=== PATIENT | female | born 1955 | race Caucasian/White ===

== ENCOUNTER 2019-03-10 08:44 | Outpatient (CLI) | payer BC, SELFPAY ==
--- NOTE | 2019-03-10 08:49 | MM_ITS ---
WS: [id number] SCREENING DIGITAL MAMMOGRAM WITH CAD HISTORY: SCREENING COMPARISON: 01/17/2018 and 09/02/2016 Bilateral CC and MLO views submitted. Computer aided detection analyzed. Breast composition: The breasts are almost entirely fatty. No suspicious masses, microcalcifications or architectural distortion. MM/[place] [id number] IMPRESSION: BI-RADS: 1-Negative FOLLOW UP: 1 Year Follow-up
--- NOTE | 2019-03-10 09:33 | US_ITS ---
WS: [id number] ULTRASOUND THYROID TECHNIQUE: Ultrasound of the thyroid. CLINICAL INFORMATION: R THYROID NODULE/HYPOTHYROIDISM COMPARISON: FINDINGS: Thyroid: Multinodular thyroid with diffuse heterogeneous echotexture consistent with multinodular goi ter. Dominant right thyroid nodule measuring 1.8 x 1.7 cm Right thyroid lobe: 3.6 cm x 1.8 cm x 1.7 cm Left thyroid lobe: 4.2 cm x 1.1 cm x 1.2 cm. Isthmus: 0.43 mm. Cervical lymphadenopathy: None. US/US thyroid [id number] IMPRESSION: Heterogeneous nodular thyroid consistent with multinodular goiter similar in ap pearance to 2013
== END 2019-03-10 08:45 | disposition home or self-care (01) ==
LOC: RADSHAW 08:47
PROVIDERS: Family Provider Internal Medicine; PCP Internal Medicine; Visit Provider Internal Medicine
DX: E04.1 Nontoxic single thyroid nodule (principal); E03.9 Hypothyroidism, unspecified; Z12.31 Encounter for screening mammogram for malignant neoplasm of breast
CPT/HCPCS: 76536; 77067

== ENCOUNTER → 2019-09-07 12:56 | Outpatient (BNVA) | payer BC, SELFPAY | PROVIDERS: Family Provider Internal Medicine; PCP Internal Medicine; Visit Provider Internal Medicine | DX: E78.5 Hyperlipidemia, unspecified (principal); E11.65 Type 2 diabetes mellitus with hyperglycemia; E03.9 Hypothyroidism, unspecified; Z79.4 Long term (current) use of insulin | CPT/HCPCS: 99203 ==

== ENCOUNTER 2019-09-21 13:27 | Outpatient (CLI) | payer BC, SELFPAY ==
[2019-09-21 14:16] LABS: Chol HDL Ratio 2.83 mg/dL (0.0-4.40); Cholesterol 147 mg/dL (0-200); HDL Cholesterol 52 mg/dL (60-100); LDL Cholesterol Calculated 68 mg/dL (50-129); LDL HDL Ratio 1.31 RATIO (0.00-3.22); Triglycerides 134 mg/dL (0-150)
== END 2019-09-21 13:28 | disposition home or self-care (01) ==
LOC: LAB 13:29
PROVIDERS: PCP Internal Medicine; Visit Provider Internal Medicine
DX: E78.5 Hyperlipidemia, unspecified (principal)
CPT/HCPCS: 36415; 80061

== ENCOUNTER → 2019-10-13 08:06 | Outpatient (BNVA) | payer BC, SELFPAY | PROVIDERS: PCP Internal Medicine; Visit Provider Internal Medicine | DX: E11.65 Type 2 diabetes mellitus with hyperglycemia (principal); Z79.4 Long term (current) use of insulin; E03.9 Hypothyroidism, unspecified; E78.5 Hyperlipidemia, unspecified | CPT/HCPCS: 99214 ==

== ENCOUNTER 2019-12-06 10:21 | Outpatient (CLI) | payer BC, SELFPAY ==
[2019-12-06 11:01] LABS: Estmated Average Glucose 223; Hemoglobin A1C 9.4 % (4.0-6.0)
== END 2019-12-06 10:22 | disposition home or self-care (01) ==
LOC: LAB 10:25
PROVIDERS: PCP Internal Medicine; Visit Provider Internal Medicine
DX: E11.65 Type 2 diabetes mellitus with hyperglycemia (principal); Z79.4 Long term (current) use of insulin
CPT/HCPCS: 36415; 83036

== ENCOUNTER → 2019-12-12 10:26 | Outpatient (BNVA) | payer BC, SELFPAY | PROVIDERS: PCP Internal Medicine; Visit Provider Internal Medicine | DX: E03.9 Hypothyroidism, unspecified (principal); E11.65 Type 2 diabetes mellitus with hyperglycemia; Z79.4 Long term (current) use of insulin; E78.5 Hyperlipidemia, unspecified | CPT/HCPCS: 99214 ==

== ENCOUNTER 2020-01-22 15:05 | Outpatient (CLI) | payer BC, SELFPAY ==
--- NOTE | 2020-01-22 15:27 | XR_ITS ---
WS: [id number] Bone mineral density performed on a [facility], 01/22/2020 Clinical data: ASYMPTOMATIC POSTMENOPAUSAL STATUS COMPARISON STUDY: None. Findings: The first 4 lumbar vertebral bodies demonstrated the bone mineral density of 1.236 g/cm2 for a young adult T score of 0.5. There is a levoscoliosis. Measurement of the left hip reveals a bone mineral density of 0.944 g/cm2 with a young adult T score of -0.5. Measurement of the right hip reveals the bone mineral density of 0.960 g/cm2 for young adult T score of -0.4. XR/XR DEXA axial skeleton* [id number] Impression: Bone mineral density of the lumbar spine and both hips is normal.
== END 2020-01-22 15:06 | disposition home or self-care (01) ==
LOC: RADWPI 15:09
PROVIDERS: PCP Internal Medicine; Visit Provider Internal Medicine
DX: Z78.0 Asymptomatic menopausal state (principal)
CPT/HCPCS: 77080

== ENCOUNTER → 2020-04-17 14:36 | Outpatient (BNVA) | payer OTHER, SELFPAY | PROVIDERS: PCP Internal Medicine; Visit Provider Internal Medicine | DX: E03.9 Hypothyroidism, unspecified (principal); E11.65 Type 2 diabetes mellitus with hyperglycemia; Z79.4 Long term (current) use of insulin; E78.5 Hyperlipidemia, unspecified | CPT/HCPCS: 99214 ==

== ENCOUNTER 2020-06-10 09:34 | Outpatient (CLI) | payer OTHER, SELFPAY ==
--- NOTE | 2020-06-10 09:48 | MM_ITS ---
WS: [id number] SCREENING DIGITAL MAMMOGRAM WITH CAD HISTORY: SCREENING COMPARISON: 03/10/2019 and 01/17/2018 Bilateral CC and MLO views submitted. Computer aided detection analyzed. Breast composition: There are scattered areas of fibroglandular density. No suspicious masses, microc alcifications or architectural distortion. MM/[place] [id number] IMPRESSION: BI-RADS: 1-Negative FOLLOW UP: 1 Year Follow-up
== END 2020-06-10 09:35 | disposition home or self-care (01) ==
LOC: RADSHAW 09:38
PROVIDERS: PCP Internal Medicine; Visit Provider Internal Medicine
DX: Z12.31 Encounter for screening mammogram for malignant neoplasm of breast (principal)
CPT/HCPCS: 77067

== ENCOUNTER → 2020-07-09 16:08 | Outpatient (BNVA) | payer OTHER, SELFPAY | PROVIDERS: PCP Internal Medicine; Visit Provider Podiatrist Foot & Ankle Surgery | DX: M25.572 Pain in left ankle and joints of left foot (principal) | CPT/HCPCS: 73630 ==

== ENCOUNTER 2021-07-25 12:44 | Outpatient (CLI) | payer OTHER, SELFPAY ==
--- NOTE | 2021-07-25 12:51 | MM_ITS ---
WS: [id number] Bilateral screening 3D tomosynthesis digital mammogram, 07/25/2021 Clinical Data: SCREEN Comparison: 06/10/2020, 03/10/2019, 01/17/2018, 09/02/2016, 08/27/2015, 05/18/2014, 02/03/2013. Findings: The breast parenchymal pattern shows fat replacement. No spiculated masses or clustered calcification s are seen. There are no secondary signs of carcinoma. There is a mole marker over the left breast. T here are small lymph nodes in both axilla. MM/[place] [id number] Impression: 1. Negative bilateral mammogram unchanged. 2. Recommend annual screening mammograms. BIRADS: 1-Negative FOLLOW UP: 1 Year Follow-up The CAD quality checker was used.
== END 2021-07-25 12:45 | disposition home or self-care (01) ==
LOC: RAD 12:48
PROVIDERS: PCP Internal Medicine; Visit Provider Internal Medicine
DX: Z12.31 Encounter for screening mammogram for malignant neoplasm of breast (principal)
CPT/HCPCS: 77063; 77067

== ENCOUNTER 2022-09-17 10:05 | Outpatient (CLI) | payer MEDICARE, MEDICAID, SELFPAY ==
--- NOTE | 2022-09-17 10:12 | MM_ITS ---
WS: [id number] BILATERAL SCREENING DIGITAL TOMOSYNTHESIS MAMMOGRAM WITH CAD HISTORY: SCREENING COMPARISON: 07/25/2021 and 06/10/2020 Bilateral CC and MLO views with tomosynthesis and synthetic mammography submitted. Computer aided det ection analyzed. Breast composition: There are scattered areas of fibroglandular density. No suspicious masses, microc alcifications or architectural distortion. IMPRESSION: MM/[place] [id number] BI-RADS: 1-Negative FOLLOW UP: 1 Year Follow-up
== END 2022-09-17 10:06 | disposition home or self-care (01) ==
LOC: RAD 10:08 → MOBLMAM 10:09
PROVIDERS: PCP Internal Medicine; Visit Provider Internal Medicine
DX: Z12.31 Encounter for screening mammogram for malignant neoplasm of breast (principal)
CPT/HCPCS: 77063; 77067

== ENCOUNTER → 2022-12-08 09:40 | Outpatient (BNVA) | payer MEDICARE, MEDICAID, SELFPAY | PROVIDERS: PCP Internal Medicine; Visit Provider Surgery | DX: Z12.11 Encounter for screening for malignant neoplasm of colon (principal) | CPT/HCPCS: 99024; 99203; 99204 ==

== ENCOUNTER 2023-09-29 09:43 | Outpatient (CLI) | payer MEDICARE, MEDICAID, SELFPAY ==
--- NOTE | 2023-09-29 09:51 | MM_ITS ---
WS: [id number] SCREENING DIGITAL TOMOSYNTHESIS MAMMOGRAM WITH CAD HISTORY: SCREENING COMPARISON: 09/17/2022, 07/25/2021 and 06/10/2020 Bilateral CC and MLO with tomosynthesis views submitted. Synthetic mammography reviewed. Computer aid ed detection analyzed. Breast composition: There are scattered areas of fibroglandular density. No suspicious masses, microc alcifications or architectural distortion. MM/[place] [id number] IMPRESSION: BI-RADS: 1-Negative FOLLOW UP: 1 Year Follow-up
== END 2023-09-29 09:44 | disposition home or self-care (01) ==
LOC: RAD 09:45
PROVIDERS: PCP Internal Medicine; Visit Provider Internal Medicine
DX: Z12.31 Encounter for screening mammogram for malignant neoplasm of breast (principal)
CPT/HCPCS: 77063; 77067

== ENCOUNTER → 2023-12-14 12:53 | Outpatient (BNVA) | payer MEDICARE, MEDICAID, SELFPAY | PROVIDERS: PCP Internal Medicine; Visit Provider Podiatrist Foot & Ankle Surgery | DX: M79.671 Pain in right foot (principal); M72.2 Plantar fascial fibromatosis; E11.42 Type 2 diabetes mellitus with diabetic polyneuropathy; Z79.4 Long term (current) use of insulin; Z79.84 Long term (current) use of oral hypoglycemic drugs | CPT/HCPCS: 73630; 99203 ==

== ENCOUNTER 2024-01-10 09:42 | Outpatient (CLI) | payer MEDICARE, MEDICAID, SELFPAY ==
--- NOTE | 2024-01-10 09:47 | XR_ITS ---
WS: [id number] XR lumbar spine min 4V [id number] REASON FOR EXAM: DEGENERATIVE DISC DZ,LUMBOSACRAL SPINE W/RADICULOPATHY FINDINGS: Significant rotatory levoscoliosis of the lumbar spine. Minimal concave compression deformities throughout the lumbar spine. Mild narrowing of the L3-L4 disc space. Mild osteophytosis L1-S1. Mild anterolisthesis of L3 in relation to L4. Moderate anterolisthesis of L4 in relation to L5. Significant degenerative arthropathic change in the facet joints at L4-L5 and L5-S1. XR/XR lumbar spine min 4V [id number] IMPRESSION: No acute abnormality. Moderate changes of degenerative spondylosis as above.
--- NOTE | 2024-01-10 09:47 | XR_ITS ---
WS: [id number] XR hand RT min 3V* [id number] REASON FOR EXAM: PAIN IN JOINTS OF R HAND FINDINGS: No acute fracture or focal bone lesion. No periosteal reaction or bone erosion. Mild to moderate joint space narrowing with mild subchondral sclerosis and moderate osteophytosis in the PIP and DIP joints of the fingers. Findings are most prominent in the fifth finger. Similar arthropathy slightly more severe is seen in the carpal metacarpal and metacarpal phalangeal j oint of the thumb. 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
--- NOTE | 2024-01-10 09:47 | XR_ITS ---
WS: [id number] XR hand LT min 3V* [id number] REASON FOR EXAM: PAIN IN JOINTS OF LEFT HAND FINDINGS: No acute fracture or focal bone lesion. No periosteal reaction or bone erosion. Mild to moderate narrowing of the DIP and PIP joint spaces of the fingers and thumb with mild subchon dral sclerosis and moderate osteophytosis. Findings are most prominent in the fifth finger. Similar but more significant arthropathic change in the carpal metacarpal joint and MCP joint of the thumb. XR/XR hand LT min 3V* [id number] IMPRESSION: Moderate osteoarthritis as above.
== END 2024-01-10 09:43 | disposition home or self-care (01) ==
PROVIDERS: PCP Internal Medicine; Visit Provider Internal Medicine
DX: M51.17 Intervertebral disc disorders with radiculopathy, lumbosacral region (principal); M41.86 Other forms of scoliosis, lumbar region; M47.896 Other spondylosis, lumbar region; M19.041 Primary osteoarthritis, right hand; M19.042 Primary osteoarthritis, left hand
CPT/HCPCS: 72110; 73130

== ENCOUNTER 2024-01-18 09:34 | Outpatient (CLI) | payer MEDICARE, MEDICAID, SELFPAY ==
--- NOTE | 2024-01-18 | ECG_ITS ---
[facility] Pat Name: Christoph Leon Department: Room: Gender: Female Music Manager: : 1955 Requested By: Joanne Morales Order Number: [id number] Johnathan MD: Alejandro Kessler M.D. Interpretive Statements LEXISCAN SESTAMIBI STRESS TEST Procedure: At the baseline, the blood pressure was 130/70 mmHg with a heart rate of 80 bpm. The electrocardiogram showed normal sinus rhythm, normal axis with normal ST and T's. The Lexiscan was infused over a period of 20 seconds. A total of 0.4 mg of Lexiscan was infused. The stress phase was continued for a total of 5 minutes. Heart rate was at the end of stress phase was 92 bpm and a blood pressure of 108/67 mmHg. The EKG at the peak infusion revealed normal sinus rhythm with no significant ST-T wave changes. Sestamibi was injected 20 seconds after the Lexiscan infusion. Blood pressure at the end of recovery phase was 106/71 mmHg with a heart rate of 91 bpm. Conclusion: 1. Normal EKG response to Lexiscan infusion 2. No Lexiscan induced chest pain or cardiac arrhythmia. 3. Normal blood pressure and heart rate response. 4. Sestamibi/sestamibi perfusion scan pending; see separate report. Electronically Signed On 01-24-2024 08:33:46 [employer]ER by Alejandro Kessler M.D. [email or web address]
[2024-01-18 09:52] VITALS: BMI 35.9
--- NOTE | 2024-01-18 09:56 | NMCV_ITS ---
NM karen perf SPECT r/s* [id number] Christoph Leon Age: 68 Gender: F : 1955 Exam Date: 01/18/2024 09:56 Ordering Phys: Joanne Gonzalez MD Technologist: SHELLY Capps Exam Location: [facility] Indications: cp STRESS TEST Please see separate stress test report in [facility] for full findings IMAGE PROTOCOL Rest/Stress 1 Lexiscan Day Radiopharmaceutical Dose (mCi) Administration Site Administered by Rest: Tc-99m 10.5 IV SHELLY Capps Sestamibi Stress:Tc-99m 32.5 IV SHELLY Collins Sestamibi Rest: 18-Jan-2024 60 Discovery 630 Stress: 18-Jan-2024 30 Discovery 630 0.4mg Lexiscan. Images obtained in supine and prone position. SPECT RESULTS Technical Quality: Good Raw Data Analysis: Normal Image Corrections: No attenuation or motion correction applied Summed Stress Score: 0 Summed Rest Score: 2 Summed Difference Score: 0 PERFUSION FINDINGS SPECT images demonstrate homogeneous tracer distribution throughout the myocardium. FUNCTIONAL RESULTS (calculated via Gated SPECT) Stress Image LV EF (%): 88 Stress EDV (mL):42 TID: 1.14 Stress ESV (mL):5 FUNCTIONAL FINDINGS: There is normal left ventricular systolic function. IMPRESSIONS 1. Normal myocardial perfusion imaging with no evidence of ischemia. 2. LV systolic function is normal. Alejandro Kessler MD (Electronically Signed) Final Date: 19 January 2024 08:04 S
[2024-01-18] MEDS: regadenoson 0.4 Mg/5 ml Syringe IVP (11:25)
[2024-01-18 11:45] VITALS: BP 126/65; PULSE 66
== END 2024-01-18 09:35 | disposition home or self-care (01) ==
LOC: CDL 09:35
PROVIDERS: PCP Internal Medicine; Visit Provider Internal Medicine
DX: R07.9 Chest pain, unspecified (principal)
CPT/HCPCS: 36415; 78452; 93017; 96374; A9500; J2785

== ENCOUNTER → 2024-05-30 09:49 | Outpatient (BNVA) | payer MEDICAID, MEDICARE, SELFPAY | PROVIDERS: PCP Internal Medicine; Referring Provider Internal Medicine; Visit Provider Nurse Practitioner Family | DX: S40.911A Unspecified superficial injury of right shoulder, initial encounter (principal); S40.912A Unspecified superficial injury of left shoulder, initial encounter; S70.361A Insect bite (nonvenomous), right thigh, initial encounter; D22.5 Melanocytic nevi of trunk; L82.1 Other seborrheic keratosis; L81.4 Other melanin hyperpigmentation; L57.0 Actinic keratosis; X58.XXXA Exposure to other specified factors, initial encounter | CPT/HCPCS: 17004; 99204 ==

== ENCOUNTER 2024-11-15 09:05 | Outpatient (CLI) | payer MEDICARE, MEDICAID, SELFPAY ==
--- NOTE | 2024-11-15 09:31 | MM_ITS ---
WS: [id number] BILATERAL 3D TOMOSYNTHESIS DIGITAL SCREENING MAMMOGRAPHY WITH CAD CLINICAL INFORMATION: ANNUAL SCREEN HISTORY: Screening mammogram. No current complaints. COMPARISON: 2023 TECHNIQUE: Bilateral CC and MLO views. FINDINGS: Scattered fibroglandular densities bilaterally. No suspicious focal mass, asymmetry, calcifications, or architectural distortion. No evidence of malignancy. MM/MM scr BI tomosynthesis [id number] IMPRESSION: DENSITY: There are scattered areas of fibroglandular density. BI-RADS: 1 - Negative. FOLLOW UP: 1 Year Follow-up Recommend return to annual screening mammography.
== END 2024-11-15 09:06 | disposition home or self-care (01) ==
LOC: RAD 09:09
PROVIDERS: PCP Internal Medicine; Visit Provider Internal Medicine
DX: Z12.31 Encounter for screening mammogram for malignant neoplasm of breast (principal); R92.323 Mammographic fibroglandular density, bilateral breasts
CPT/HCPCS: 77063; 77067

== ENCOUNTER → 2024-11-29 09:32 | Outpatient (BNVA) | payer MEDICARE, MEDICAID, SELFPAY | PROVIDERS: PCP Internal Medicine; Visit Provider Nurse Practitioner Family | DX: S50.911A Unspecified superficial injury of right forearm, initial encounter (principal); S50.912A Unspecified superficial injury of left forearm, initial encounter; D22.5 Melanocytic nevi of trunk; L82.1 Other seborrheic keratosis; L81.4 Other melanin hyperpigmentation; C44.622 Squamous cell carcinoma of skin of right upper limb, including shoulder; L57.0 Actinic keratosis; X58.XXXA Exposure to other specified factors, initial encounter | CPT/HCPCS: 11102; 17000; 99214 ==

== ENCOUNTER → 2025-02-05 15:37 | Outpatient (BNVA) | payer MEDICARE, MEDICAID, SELFPAY | PROVIDERS: PCP Internal Medicine; Visit Provider Nurse Practitioner Family | DX: L57.0 Actinic keratosis (principal); S50.911A Unspecified superficial injury of right forearm, initial encounter; S50.912A Unspecified superficial injury of left forearm, initial encounter; L81.4 Other melanin hyperpigmentation; X58.XXXA Exposure to other specified factors, initial encounter | CPT/HCPCS: 17000; 99213 ==